=== PATIENT | male | born 1950 | race Caucasian/White ===

== ENCOUNTER 2023-01-12 20:51 | Inpatient (IN) | payer MEDICARE, MEDICAID ==
[~2023-01-12 20:51] MED LIST: Iopamidol-370 76% 500 ML MDV (1 ML CHARGE) ONE
[2023-01-12 21:33] LABS: #Eosinphils 0.3 thou/uL (0.0-0.7); #Lymphocytes 1.6 thou/uL (1.20-3.40); #Monocytes 0.5 thou/uL (0.11-0.59); #Neutrophils 5.9 thou/uL (1.40-6.50); %Basophils 0.4 % (0.0-1.0); %Eosinophils 3.9 % (0.0-10.0); %Lymphocytes 18.9 % (21.0-51.0); %Monocytes 5.7 % (0.0-10.0); Hemoglobin 12.1 g/dL (14.0-18.0); Mean Corpuscular Hemoglobin 31.8 pg (27.0-31.0); Mean Corpuscular Volume 96.5 fl (78.0-98.0); Platelet Count 178 10x3/uL (130-400); RBC Distribution Width 12.1 % (11.5-14.5); Red Blood Cell (RBC) Count 3.79 mill/uL (4.70-6.10); White Blood Cell (WBC) Count 8.3 10x3/uL (4.8-10.8)
[2023-01-12 21:45] LABS: INR-International Normal Ratio 1.3; PTT 24.4 sec (22.9-36.1); Prothrombin Time 16.4 sec (12.0-14.7)
[2023-01-12 21:53] LABS: ALT (SGPT) 9 U/L (8-55); AST (SGOT) 12 U/L (5-34); Albumin 3.6 g/dL (3.4-4.8); Alkaline Phosphatase 62 U/L (40-110); Anion Gap 15 mmol/L (10-20); BUN (Urea Nitrogen) 17 mg/dL (8.4-25.7); Bilirubin, Total 0.3 mg/dL (0.2-1.2); CK (CPK) 53 U/L (30-200); Calc. Creatinine Clearance 0 mL/min (70-130); Calcium 8.3 mg/dL (7.8-10.44); Carbon Dioxide 25 mmol/L (23-31); Chloride 104 mmol/L (98-107); Estimated GFR 93; Globulin 3.3 g/dL (2.4-3.5); Glucose 91 mg/dL (83-110); Potassium 3.9 mmol/L (3.5-5.1); Protein, Total 6.9 g/dL (5.8-8.1); Sodium 140 mmol/L (136-145)
[2023-01-12 22:47] LABS: Bilirubin Negative (Negative); Blood, Urine Negative (Negative); Clarity Clear (Clear); Glucose, Urine (Dipstick) Normal (Negative); Ketone, Urine Negative (Negative); Leukocyte Negative Leu/uL (Negative); Nitrite Negative (Negative); Protein, Urine (Dipstick) Negative (Neg-Trace); Specific Gravity, Urine 1.043 (1.002-1.036); pH, Urine 5.5 (5.0-9.0)
[2023-01-13 01:23] VITALS: BMI 24.2
[2023-01-13] MEDS ORDERED: Ondansetron ODT 4 MG TAB PO PRN (01:39)
[2023-01-13] MEDS ORDERED: Acetaminophen 650 MG Suppository PR PRN (01:39)
[2023-01-13] MEDS ORDERED: Ondansetron PF 4 MG/2 ML Vial IVP PRN (01:39)
[2023-01-13] MEDS ORDERED: hydrALAZINE 20 MG/ML VIAL SLOW IVP PRN (01:39)
[2023-01-13] MEDS ORDERED: Acetaminophen 325 MG TAB PO PRN (01:39)
[2023-01-13 05:38] LABS: #Eosinphils 0.3 thou/uL (0.0-0.7); #Lymphocytes 1.6 thou/uL (1.20-3.40); #Monocytes 0.4 thou/uL (0.11-0.59); #Neutrophils 4.3 thou/uL (1.40-6.50); %Basophils 0.5 % (0.0-1.0); %Eosinophils 4.2 % (0.0-10.0); %Lymphocytes 23.8 % (21.0-51.0); %Neutrophils 65.4 % (42.0-75.0); Hemoglobin 11.8 g/dL (14.0-18.0); Mean Corpuscular HGB CONC 32.1 g/dL (32.0-36.0); Mean Corpuscular Hemoglobin 31.4 pg (27.0-31.0); Mean Corpuscular Volume 97.8 fl (78.0-98.0); Mean Platelet Volume 10.3 fL (7.4-10.4); Platelet Count 123 10x3/uL (130-400); RBC Distribution Width 12.3 % (11.5-14.5); Red Blood Cell (RBC) Count 3.75 mill/uL (4.70-6.10); White Blood Cell (WBC) Count 6.5 10x3/uL (4.8-10.8)
[2023-01-13 05:58] LABS: Anion Gap 10 mmol/L (10-20); BUN (Urea Nitrogen) 13 mg/dL (8.4-25.7); Calc. Creatinine Clearance 106 mL/min (70-130); Calcium 8.5 mg/dL (7.8-10.44); Carbon Dioxide 26 mmol/L (23-31); Cardiac Risk 3.1 (Less than 4.5); Chloride 109 mmol/L (98-107); Cholesterol 88 mg/dl (< 200 Desired); Estimated GFR 97; Glucose 76 mg/dL (83-110); HDL Cholesterol 28 mg/dL (>60 Neg Risk); LDL Cholesterol, Calculated 49 mg/dL; Potassium 3.9 mmol/L (3.5-5.1); Sodium 141 mmol/L (136-145); Triglycerides 57 mg/dL (Less than 150)
[2023-01-13] MEDS ORDERED: Aspirin 81 mg Enteric Coated Tablet PO SCH ×2 (06:30→09:00)
[2023-01-13] MEDS ORDERED: Non-Formulary Item 1 EACH (Trazodone Hcl [Trazodone Hcl] 100 MG Tablet) PO SCH (21:00)
[2023-01-13] MEDS ORDERED: Non-Formulary Item 1 EACH (Lactulose 10 Gm/15ml Oral Sol 10 GM/15 ML Ml) PO SCH (21:00)
[2023-01-13] MEDS: traZODone HCl 50 MG TAB PO SCH (21:13)
[2023-01-13] MEDS: Atorvastatin Calcium 20 MG TAB PO SCH (21:13)
[2023-01-14 05:48] LABS: #Basophils 0.1 thou/uL (0.0-0.2); #Eosinphils 0.3 thou/uL (0.0-0.7); #Lymphocytes 1.7 thou/uL (1.20-3.40); #Monocytes 0.4 thou/uL (0.11-0.59); #Neutrophils 2.9 thou/uL (1.40-6.50); %Basophils 1.1 % (0.0-1.0); %Eosinophils 6.4 % (0.0-10.0); %Lymphocytes 31.1 % (21.0-51.0); %Monocytes 6.9 % (0.0-10.0); %Neutrophils 54.5 % (42.0-75.0); Hemoglobin 12.2 g/dL (14.0-18.0); Mean Corpuscular HGB CONC 32.6 g/dL (32.0-36.0); Mean Corpuscular Hemoglobin 31.2 pg (27.0-31.0); Mean Corpuscular Volume 95.7 fl (78.0-98.0); Mean Platelet Volume 9.4 fL (7.4-10.4); Platelet Count 165 10x3/uL (130-400); RBC Distribution Width 12.1 % (11.5-14.5); White Blood Cell (WBC) Count 5.3 10x3/uL (4.8-10.8)
[2023-01-14 06:02] LABS: Anion Gap 11 mmol/L (10-20); BUN (Urea Nitrogen) 12 mg/dL (8.4-25.7); Calc. Creatinine Clearance 104 mL/min (70-130); Calcium 8.6 mg/dL (7.8-10.44); Carbon Dioxide 25 mmol/L (23-31); Chloride 106 mmol/L (98-107); Estimated GFR 96; Glucose 76 mg/dL (83-110); Potassium 3.7 mmol/L (3.5-5.1); Sodium 138 mmol/L (136-145)
[2023-01-14] MEDS ORDERED: Donepezil HCl 10 MG TAB PO SCH (09:00)
[2023-01-14] MEDS: Aspirin 81 mg Enteric Coated Tablet PO SCH (09:16)
[2023-01-14] MEDS: Citalopram 20 MG TAB PO SCH (09:16)
[2023-01-14] MEDS: Clopidogrel Bisulfate 75 MG TAB PO SCH (09:16)
[2023-01-14] MEDS: Atorvastatin Calcium 20 MG TAB PO SCH (21:36)
[2023-01-14] MEDS: traZODone HCl 50 MG TAB PO SCH (21:37)
[2023-01-15 06:03] LABS: #Basophils 0.1 thou/uL (0.0-0.2); #Eosinphils 0.3 thou/uL (0.0-0.7); #Lymphocytes 1.6 thou/uL (1.20-3.40); #Monocytes 0.4 thou/uL (0.11-0.59); #Neutrophils 2.6 thou/uL (1.40-6.50); %Basophils 1.1 % (0.0-1.0); %Eosinophils 6.9 % (0.0-10.0); %Lymphocytes 31.8 % (21.0-51.0); %Monocytes 7.2 % (0.0-10.0); %Neutrophils 52.9 % (42.0-75.0); Hemoglobin 12.3 g/dL (14.0-18.0); Mean Corpuscular HGB CONC 32.6 g/dL (32.0-36.0); Mean Corpuscular Hemoglobin 31.1 pg (27.0-31.0); Mean Corpuscular Volume 95.3 fl (78.0-98.0); Mean Platelet Volume 9.5 fL (7.4-10.4); Platelet Count 184 10x3/uL (130-400); Red Blood Cell (RBC) Count 3.96 mill/uL (4.70-6.10)
[2023-01-15 06:22] LABS: Anion Gap 10 mmol/L (10-20); BUN (Urea Nitrogen) 14 mg/dL (8.4-25.7); Calc. Creatinine Clearance 100 mL/min (70-130); Calcium 8.3 mg/dL (7.8-10.44); Carbon Dioxide 27 mmol/L (23-31); Chloride 105 mmol/L (98-107); Estimated GFR 95; Glucose 77 mg/dL (83-110); Potassium 3.5 mmol/L (3.5-5.1); Sodium 138 mmol/L (136-145)
[2023-01-15] MEDS: Aspirin 81 mg Enteric Coated Tablet PO SCH (11:20)
[2023-01-15] MEDS: Clopidogrel Bisulfate 75 MG TAB PO SCH (11:20)
[2023-01-15] MEDS: Citalopram 20 MG TAB PO SCH (11:20)
[2023-01-15 15:44] VITALS: BP 133/82; TEMP 98.5
== END 2023-01-15 18:30 | DRG 65 ==
LOC: ERS 20:51 → NEURO 23:39 → OBSVTOIN 01-13 08:56
PROVIDERS: ADMIT Internal Medicine; ATTEND Internal Medicine
DX: I63.531 Cerebral infarction due to unspecified occlusion or stenosis of right posterior cerebral artery (principal); G81.94 Hemiplegia, unspecified affecting left nondominant side; Z66 Do not resuscitate; R29.708 NIHSS score 8; Z20.822 Contact with and (suspected) exposure to COVID-19; E55.9 Vitamin D deficiency, unspecified; E78.5 Hyperlipidemia, unspecified; I10 Essential (primary) hypertension; F03.90 Unspecified dementia, unspecified severity, without behavioral disturbance, psychotic disturbance, mood disturbance, and anxiety; R47.81 Slurred speech; R29.810 Facial weakness; R47.1 Dysarthria and anarthria; D64.9 Anemia, unspecified; R00.1 Bradycardia, unspecified; K59.00 Constipation, unspecified; D69.6 Thrombocytopenia, unspecified; I08.3 Combined rheumatic disorders of mitral, aortic and tricuspid valves; Z79.899 Other long term (current) drug therapy; I25.2 Old myocardial infarction
CPT/HCPCS: 36415; 51701; 70450; 70496; 70498; 70551; 80048; 80053; 80061; 81003; 82550; 84484; 85025; 85610; 85730; 93005; 93306; 94760; G0378; J1650; Q9967; U0003; U0005